=== PATIENT | male | born 1985 | race Two or more races ===

== ENCOUNTER 2016-12-23 10:48 | Emergency (ER) | payer OTHER ==
[~2016-12-23] VITALS: Ht 170.2 cm; Wt 70.0 kg
[~2016-12-23 10:48] MED LIST: KEFLEX500 MG PO
[2016-12-23 11:32] LABS: HEMATOCRIT 43.9 % (38.0-50.0); MCH 29.5 PG (29.0-34.0); MCHC 32.6 G/DL (30.0-36.0); MCV 90.7 FL (86-99); MEAN PLAT.VOLUME 9.8 uM^3 (9.0-12.4); PLATELET COUNT 264 K/uL (156-360); RBC DIS.WIDTH-CV 13.4 % (11.8-14.6); RBC DIS.WIDTH-SD 44.6 % (39-53); RED BLOOD COUNT 4.84 M/uL (4.00-5.50); WHITE BLOOD COUNT 13.2 K/uL (4.1-10.2)
[2016-12-23 11:42] LABS: CHLORIDE 103 mEq/L (99-109); SODIUM 138 mEq/L (136-147)
[2016-12-23 11:44] LABS: GLUCOSE 69 mg/dL (70-99)
[2016-12-23 11:45] LABS: ANION GAP 14 MEQ/L (2-14)
[2016-12-23 11:48] LABS: GFR ESTIMATE (CALCULATED) > 59 mL/min/; UREA NITROGEN (BUN) 15 mg/dL (9-23)
[2016-12-23 11:52] LABS: TROP-I INTERPRETATION NEGATIVE; TROPONIN-I < 0.01 ng/mL (0.0-0.30)
[2016-12-23 14:38] LABS: TROP-I INTERPRETATION NEGATIVE; TROPONIN-I < 0.01 ng/mL (0.0-0.30)
[2016-12-23] MEDS ORDERED: ATARAX,VISTARIL25 MG PO (15:06)
[2016-12-23 15:09] VITALS: BP 130/74
== END 2016-12-23 15:10 | disposition home or self-care (01) ==
LOC: EME 10:48
PROVIDERS: Physician Assistant
DX: R07.89 Other chest pain (principal); F14.10 Cocaine abuse, uncomplicated
CPT/HCPCS: 71020; 80048; 84484; 85027; 93005; 99281; 99284

== ENCOUNTER 2017-11-21 22:11 | Day surgery (SDC) | payer OTHER ==
[~2017-11-21] VITALS: Ht 172.7 cm; Wt 69.0 kg
[~2017-11-21 22:11] MED LIST changes: +ATARAX,VISTARIL25 MG PO
[2017-11-22 03:41] VITALS: BP 99/59
[2017-11-22 07:44] LABS: MAGNESIUM 1.7 mg/dl (1.3-2.7)
[2017-11-22 08:00] VITALS: BP 99/59
[2017-11-22 09:40] LABS: HEMATOCRIT 40.4 % (38.0-50.0); HEMOGLOBIN 13.1 G/DL (12.5-16.6); MCHC 32.4 G/DL (30.0-36.0); MCV 92.4 FL (86-99); PLATELET COUNT 233 K/uL (156-360); RBC DIS.WIDTH-CV 13.6 % (11.8-14.6); RBC DIS.WIDTH-SD 46.9 % (39-53); RED BLOOD COUNT 4.37 M/uL (4.00-5.50); WHITE BLOOD COUNT 11.1 K/uL (4.1-10.2)
[2017-11-22 09:50] LABS: ALBUMIN 3.6 G/DL (3.2-4.8); ALKALINE PHOSPHATASE 69 IU/L (3-129); ALT (GPT) 15 IU/L (3-49); AST (GOT) 16 IU/L (2-34); CHLORIDE 108 MEQ/L (99-109); CREATININE 0.9 MG/DL (0.6-1.3); GFR ESTIMATE (CALCULATED) > 59 mL/min/ (58.99-99999); GLUCOSE 80 mg/dL (70-99); POTASSIUM 4.4 MEQ/L (3.7-5.4); SODIUM 140 MEQ/L (136-147); TOTAL BILIRUBIN 0.3 MG/DL (0.0-1.0); TOTAL PROTEIN 5.8 G/DL (6.4-8.3); UREA NITROGEN (BUN) 11 mg/dL (9-23)
== END 2017-11-22 17:20 | disposition short-term general hospital (02) ==
LOC: EME 22:11 → SDC 11-22 00:33 → 2SOUTH 11-22 01:30 → ENRESERV 11-22 01:57 → CANRESERV 11-22 01:57 → ENRESERV 11-22 02:00 → 3EAST 11-22 03:35
PROVIDERS: Internal Medicine; Surgery
DX: T18.198A Other foreign object in esophagus causing other injury, initial encounter (principal); Z53.09 Procedure and treatment not carried out because of other contraindication; F17.200 Nicotine dependence, unspecified, uncomplicated; F19.10 Other psychoactive substance abuse, uncomplicated; F10.10 Alcohol abuse, uncomplicated
CPT/HCPCS: 70360; 74018; 80053; 83735; 85027; 94002; 94799; 99281; 99284; G0378; J0330; J1100; J1170; J2250; J2405; J2704; J2710; J3010; J7030; S0074

== ENCOUNTER 2018-02-15 22:48 | Emergency (ER) | payer OTHER ==
[~2018-02-15] VITALS: Ht 170.2 cm; Wt 71.8 kg
[2018-02-15 23:11] VITALS: BP 102/72
== END 2018-02-16 01:06 | disposition home or self-care (01) ==
LOC: EME 22:48
DX: M25.562 Pain in left knee (principal); F17.200 Nicotine dependence, unspecified, uncomplicated
CPT/HCPCS: 73564; 99281; 99284